=== PATIENT | female | born 1955 | race Caucasian/White ===

== ENCOUNTER 2017-04-21 14:05 | Emergency (ER) | payer MEDICARE, MEDICAID ==
[~2017-04-21] VITALS: Ht 180.3 cm; Wt 122.5 kg
[~2017-04-21 14:05] MED LIST: ABILIFY20 MG OR; AMLO5TAB; ATENOLOL100 MG PO; ATENOLOL25 MG PO; BACTRIM DS 8001 TAB PO; BENZTROPINE MESY1 MG PO; COGENTIN GENERIC1 MG OR; EFFEXOR XR150 MG OR; FLEXERIL10 MG PO; HCTZ/LISINOPRIL1 TA3 PO; LISINOPRIL HCTZ1 TAB PO; MIRTAZAPINE15 M1; MIRTAZAPINE15 M1 PO; NEXIUM40 MG PO; SEPTRA DS 800 M1 TAB PO; VICODIN 5/500 T1 TAB PO; ZESTRIL20 MG PO
[2017-04-21 14:39] LABS: HEMOGLOBIN 13.2 g/dL (12.2-16.2); LYMPH # 3.4 K/mm3 (0.7-4.5); LYMPH % 32.4 % (10-50.0)
[2017-04-21 14:41] LABS: URINE BILIRUBIN - DIPSTICK NEGATIVE (NEG); URINE BLOOD 3+ (NEG)
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
--- OUTSIDE RECORDS SUMMARY | 2017-04-21 14:55 | External Medical Summary Rpt ---
Author Author , MANNY BRYANT Address Unknown Phone [email or web address] Care Team Providers Care Survey Analyst Name Role Phone CHICHI WHYTE, CHICHI Unavailable Unavailable ISABELL [facility], Unavailable Unavailable [facility] SHIMON J, SHIMON J Unavailable Unavailable SHIMON Lewis G, SHIMON J Unavailable Unavailable G SHIMON Lewis G, SHIMON J Unavailable Unavailable G Debbie ROBINS, SHIMON, Unavailable Unavailable J G CHERI BRIONNA, Unavailable Unavailable CHERI BRIONNA CHERI, IRAIDA, Unavailable Unavailable CHERI, [facility]IDA [facility], [facility] Unavailable Unavailable [facility], [facility] CECI LATISHA, CECI Unavailable Unavailable LATISHA CECI LATISHA, CECI Unavailable Unavailable LATISHA [facility] Unavailable Unavailable HOSPITA, [facility] MARIA ELENA CHAUDHRY, Unavailable Unavailable MARIA ELENA CHAUDHRY RHO, JAVI Unavailable Unavailable RHO [facility] Unavailable Unavailable INC, [facility] Unavailable Unavailable HOSPITAL P, [facility] P [facility] Unavailable Unavailable IMAGING ASS, [facility] Unavailable Unavailable HOLDINGS, [facility] Unavailable Unavailable [facility]INGS, [facility], Unavailable Unavailable [facility], Unavailable Unavailable [facility] ADRIANA DWI, ADRIANA DWI Unavailable Unavailable [facility] Unavailable Unavailable SERVICES, [facility] MATIAS NUR, Unavailable Unavailable MATIAS NUR R Henrry, Unavailable Unavailable MITZI Linus Sales, Unavailable Unavailable Linus CHAMBERS, Unavailable Unavailable Linus [facility] Un[facility] [place] [place] [facility] Unavailable Unavailable LAB, [facility]Y [facility], Unavailable Unavailable [id number], Unavailable Unavailable [id number] Unavailable Unavailable INC, [facility] BETHANY SERNA, Unavailable Unavailable BETHANY SERNA MITCHELL E, Unavailable Unavailable RADHA SANTIAGO SPIREK ANI, SPIREK Unavailable Unavailable ANI SPIREK ANI, SPIREK Unavailable Unavailable ANI [facility] Unavailable Unavailable [facility] JULIO CÉSAR FRAIRE, Unavailable Unavailable JULIO CÉSAR FRAIRE MARTINEZ GRE, MARTINEZ Unavailable Unavailable GRE BERKOWITZ MONTRELL, BERKOWITZ MONTRELL Unavailable Unavailable WEHRMAN III BHAKTI, Unavailable Unavailable WEHRMAN III BHAKTI AVI SHIPLEY, AVI SHIPLEY Unavailable Unavailable CHAVO ACUNA, Unavailable Unavailable CHAVO ACUNA Purpose Continuity of Care Document - 10-01-2007 through 2016 Problems Code Diagnosis DOS Provider Status K828 OTHER 10-04-2015 [place] SPECIFIED MEDICAL DISEASES OF IMAGING ASS GALLBLADDER R1011 RIGHT UPPER 10-04-2015 [facility] PAIN INC R197 DIARRHEA 10-04-2015 [place] UNSPECIFIED MEDICAL IMAGING ASS R109 UNSPECIFIED 09-24-2015 [place] ABDOMINAL MEDICAL PAIN IMAGING ASS 7802 SYNCOPE AND 03-24-2015 [facility] P 6271 POSTMENOPAU 06-04-2014 SPIRE[facility] ANI HELDER BLEEDING 7935 NONSPECIFIC 06-04-2014 [facility] ANI ABN FINDING RAD & OTH EXAM ORGAN 4019 UNSPECIFIED 05-26-2014 [facility] ESS[facility] 07454 ESOPHAGEAL 05-26-2014 [facility] REFLUX [facility] 02123 SIMPLE 05-26-2014 [facility] HY[facility] WITHOUT ATYPIA V7283 OTHER 05-26-2014 [facility] [place] [facility] PRE-OPERATI VE EXAMINATION 6259 UNSPEC 03-16-2014 [place] [facility] W/FEMALE GENITAL ORGANS 6268 OTH D/O 03-16-2014 [place] MENSTRUATIO MEDICAL N&OTH ABN IMAGING ASS BLEED FE GNT TRACT 5939 UNSPECIFIED 11-22-2013 [facility] MIC DISORDER OF KIDNEY AND URETER 5909 URINARY 11-22-2013 [facility] INFECTION INC SITE NOT SPECIFIED 13316 DEHYDRATION 04-18-2013 AVI SHIPLEY 24299 DIARRHEA 04-18-2013 AVI SHIPLEY 6820 ACUTE 11-08-2012 [facility] BRONCHITIS [facility] 18461 CHEST PAIN 11-08-2012 JAVI RHO UNSPECIFIED 04500 OTHER CHEST 11-08-2012 [facility] 84070 NAUSEA WITH 11-08-2012 [facility] VOMITING [facility] V8289 SPECIAL 10-18-2012 LAB [facility] SCREENING BRANDI FOR OTHER HOLDINGS SPECIFIED CONDITIONS V0189 CONTACT/EXP 10-17-2012 SHIMON Amor OSURE TO OTHER COMMUNICABL E DISEASES 6100 SOLITARY 05-08-2012 [place] CYST OF MEDICAL BREAST IMAGING ASS 55826 LUMP OR 05-08-2012 [place] MASS IN MEDICAL BREAST IMAGING ASS 23451 UNSPECIFIED 05-08-2012 [facility] ABNORMAL [facility] MAMMOGRAM INC V7612 OTHER 05-08-2012 [place] SCREENING MEDICAL MAMMOGRAM IMAGING ASS 43453 VAGINITIS&V 04-26-2012 MITZI Barriga ULVOVAGINIT H IS DISEASES CLASS ELSW V762 SCREENING 04-26-2012 MITZI Barriga FOR H MALIGNANT NEOPLASM OF THE CERVIX 5533 DIAPHRAGMAT 04-11-2012 [place] GREGORIO W/O MEDICAL MENTION IMAGING ASS OBSTRUCTION /GANGREN 70910 DISPLCMT 01-01-2012 [place] LUMBAR MEDICAL INTERVERT IMAGING ASS DISC W/O MYELOPATHY 10283 DEGEN 01-01-2012 [place] LUMBAR/LUMB MEDICAL OSACRAL IMAGING ASS INTERVERTEB RAL DISC 7242 LUMBAGO 01-01-2012 [facility] INC 2724 OTHER AND 07-02-2011 [facility] UNSPECIFIED [facility] INC HYPERLIPIDE LANI 90903 ABDOMINAL 07-02-2011 [facility], EMERGENCY UNSPECIFIED SERVICES SITE 82666 ABDOMINAL 07-02-2011 [facility] PA[facility] OTHER [facility] SPECIFIED INC SITE 8470 NECK SPRAIN 11-28-2010 [place] AND STRAIN MEDICAL IMAGING ASS 8472 LUMBAR 11-28-2010 [place] SPRAIN AND MEDICAL STRAIN IMAGING ASS E8121 OTH MOTR 11-28-2010 [place] VEH JOSELUIS MEDICAL W/MOTR IMAGING ASS VEH-INJR MV PASSENGER E8495 PLACE OF 11-28-[address] [place] [address] ASS [address] PULMONARY 09-18-2010 [place] CONGESTION MEDICAL AND IMAGING ASS HYPOSTASIS 7804 DIZZINESS 09-18-2010 [facility] GIDDINESS SERVICES 35232 ABDOMINAL 07-12-2010 [place] PAIN RIGHT MEDICAL UPPER IMAGING ASS QUADRANT 2859 UNSPECIFIED 07-04-2010 [facility] 7245 UNSPECIFIED 07-04-2010 [facility] [place] [facility] 44818 CONTUSION 03-22-2010 [facility] BACK EMERGENCY SERVICES E8889 UNSPECIFIED 03-22-2010 [facility] FALL [facility]Y SERVICES 5206 DISTURBANCE 11-23-2009 Pankaj FRAIRE IN TOOTH JULIO CÉSAR C ERUPTION 67327 EXOSTOSIS 11-23-2009 YEE JIMY JAW JULIO CÉSAR C 7244 THORACIC/THALIA 11-20-2008 [facility] MBOSACRAL H NEURITIS/RA ORTHOPAEDIC DICULITIS CTR PSC UNSPEC 3534 LUMBOSACRAL 11-19-2008 [facility] INC 2252 BENIGN 06-17-2008 [facility] CEREBRAL EAST MENINGES 7213 LUMBOSACRAL 06-17-2008 [facility] 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 33431 POSTLAMINEC 06-17-2008 [facility] SYNDROME EAST LUMBAR REGION 8471 THORACIC 03-06-2008 [facility] SPRAIN AND H STRAIN ORTHOPAEDIC CTR PSC 5849 ACUTE 12-31-2007 [place] KIDNEY MEDICAL FAILURE IMAGING UNSPECIFIED ASSOCIATES 586 UNSPECIFIED 12-30-2007 [facility] PROF SERV 56290 DUODENITIS 12-12-2007 SCHULSTAD, WITHOUT BETHANY MENTION OF HEMORRHAGE 5368 DYSPEPSIA&O 12-12-2007 MARTHASTDRE, THER SPEC BETHANY DISORDERS FUNCTION STOMACH 76681 DYSPHAGIA 12-05-2007 PATHOLOGY & UNSPECIFIED CYTOLOGY LAB 5997 HEMATURIA 11-05-2007 [facility] Medications Na ND Rx Da Fi Fi Am Da Di Ph RX Ph St me C No te ll ll ou ys ag ar # ys at rm s nt no ma ic us Or Da si cy ia de te s n re d PE 00 09 09 1 59 1 [...] 20 20 AI 77 08 08 D PR 10 0 PH TC AR HE MG M LL #3 E TA 93 BL 8 ET Procedures Procedure [place] [address] [facility] ABDOMINAL 6 [facility] REAL INC INC TIME W/[place] [address] SAURABH ALONZO ABDOMEN & 6 MEDICAL BRIONNA PELVIS IMAGING W/O ASS CONTRAST MATERIAL XTRNL ECG 96593 [facility] FINLEY & 48 HR 5 [facility] RECORDING INC INC XTRNL ECG 82390 [facility] CADET 5 [facility] S RHYTHM P W/I&R UP TO 48 HRS HYSTEROSC 00584 SPIREK SPIREK OPY BX 4 ANI ANI ENDOMETRI UM&/POLYP C W/WO D&C RADIOLOGI 31751 [facility] C EXAM 4 N N CHEST 2 [facility] HOSPITA HOSPITA FRONTAL&L ATERAL ECG 82198 [facility] ROUTINE 4 N N ECG [facility] W/LEAST HOSPITA HOSPITA 12 LDS TRCG ONLY W/[place] [address] [facility], [facility], SURG 4 [facility] PATHOLOGY GROSS&[place] [address] [facility] ALONZO ABDOMEN & 4 MEDICAL BRIONNA PELVIS IMAGING W/[place] [address] [facility] FIN[facility] ABDOMEN & 4 [facility] PELVIS INC INC W/O CONTRAST MATERIAL ECG 35935 AVI SHIPLEY ROUTINE 3 ECG W/LEAST 12 LDS I&R ONLY RADIOLOGI 80713 [facility] C EXAM 3 N N CHEST 2 [facility] HOSPITA HOSPITA FRONTAL&L ATERAL ACUTE 39361 LAB [facility] LAB CY[facility] HEPATITIS 3 BRANDI BRANDI PANEL HOLDINGS HOLDINGS DIAGNOSTI G0204 [facility] FINLEY C [address] [facility] HOSP MAMMOGRAP INC INC HY INCL CAD WHEN PERF; BILAT US BREAST 20298 [facility] REAL 2 MEDICAL MEDICAL TIME IMAGING IMAGING W/IMAGE ASS ASS DOCUMENTA TION RADEX 54902 [facility] UPPER GI 2 [facility] W/WO INC INC GLUCAGON/ DEL[place] IM[place] [address] [facility] ALONZO TRACT 2 MEDICAL BRIONNA UPPER IMAGING W/WO ASS DELAYED IMAGES W/O KUB MRI 12675 [facility] SPINAL 2 [facility] CANAL INC INC LUMBAR W/O CONTRAST MATERIAL 3D 11157 [facility]AV[facility] FINLEY RENDERING 2 [facility] W/INTERP INC INC & [place] ON 3D 61356 [facility] RENDERING 1 [facility] INC INC W/INTERP& POSTPROC DIFF WORK STATION RADEX ABD 79700 [facility] COMPL 1 [facility] AQT ABD INC INC W/S/E/D [address] [address] [place] [address] [facility] ABDOMEN & 1 [facility] PELVIS INC INC W/[place] [address] [facility] LIPASE 1 [place] [address] [facility] AMYLASE 1 [facility] INC INC COMPREHEN 32321 [facility] SIVE 1 [facility] METABOLIC INC INC PANEL CULTURE 57264 [facility] BACTERIAL 1 [facility] INC INC QUANTTATI VE COLONY COUNT URINE BLOOD 28423 [facility] COUNT 1 [facility] COMPLETE INC INC AUTO&AUTO DIFRNTL WBC URNLS DIP 29079 [facility] FINLEY 1 [facility] STICK/TAB INC [place] [address] [facility] ANGIOGRAP 1 [facility] HY INC INC ABDOMEN W/CONTRAS T/NONCONT RAST COMPREHEN 14125 [facility] SIVE 1 DIAGNOSTI DIAGNOSTI METABOLIC CS CS PANEL 3D 77481 SAURABH CHERI RENDERING 1 MEDICAL BRIONNA IMAGING W/INTERP& ASS POSTPROC DIFF WORK STATION RADEX 07170 [facility] CHERI SPINE 1 MEDICAL BR[facility] LUMBOSACR IMAGING AL [place] [address] [place] [address] SAURABH JOHNSONUTCHER CERVICAL 1 MEDICAL BRIONNA SPINE W/O IMAGING CONTRAST ASS MATERIAL CREATINE 78962 [facility] KINASE MB 0 [facility] FRACTION INC INC ONLY CREATINE 74916 [facility] KINASE 0 [place] [address] [facility] INFUSION 0 [facility] THERAPY/P INC INC ROPHYLAXI S /DX 1ST TO [address] [place] [address] [facility] TROPONIN 0 [facility] QUANTITAT INC INC WAI BASIC 38632 [facility] METABOLIC 0 [facility] PANEL INC INC CALCIUM TOTAL BLOOD 40705 [facility] COUNT 0 [facility] COMPLETE INC INC AUTO&AUTO DIFRNTL WBC ECG 52558 [facility] WRIGHT DWI ROUTINE 0 [facility] W/LEAST P 12 LDS I&R ONLY ECG 32653 [facility] ROUTINE 0 [facility] ECG INC INC W/LEAST 12 LDS TRCG ONLY W/O I&R RADIOLOGI 18716 [facility] C 0 [facility] EXAMINATI INC [place] [address] SAURABH CHERI ABDOMINAL 0 MEDICAL [facility] REAL IMAGING TIME ASS W/IMAGE LIMITED BLOOD 36466 FAMILY SHIMON J COUNT 0 CARE COMPLETE ASSOCIATE AUTO&AUTO S DIFRNTL WBC LIPID 48921 FAMILY SHIMON J 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 COLLECTIO 82354 FAMILY SHIMON J N VENOUS 0 CARE BLOOD [place] [address] [facility]ONE OF THYROID 0 [facility] INC STIMULATI NG HORMONE TSH COMPREHEN 20282 [facility] OF SIVE 0 [facility] METABOLIC PANEL MRI 31854 OPENSIDED OPENSIDED SPINAL 0 MRI OF MRI OF CANAL CINNCINNA CINNCINNA LUMBAR TI TI W/O CONTRAST MATERIAL RADEX 48806 [facility] SPINE 0 [facility]OS[facility] LUMBOSACR INC INC AL MINIMUM 4 VIEWS DEEP D9220 YEE FRAIRE, SEDATION/ 0 JULIO CÉSAR Mcknight GENERAL ANESTHESI A-1ST 30 MINUTES ALVEOLOPL 15688 YEE FRAIRE, ASTY EACH 0 JULIO CÉSAR Mcknight QUADRANT SPECIFY EXCISION 30412 YEE FRAIRE TORUS 0 JULIO CÉSAR Mcknight MANDIBULA RIS LIPID 69599 [facility] PANEL 0 [place] [facility] [place] [facility] COMPREHEN 32394 [facility] SIVE 0 [place] [facility] [place] [facility] METABOLIC PANEL COLLECTIO 51277 FAMILY ROBINS, J N VENOUS 0 CARE G BLOOD ASSOCIATE VENIPUNCT S URE COLLECTIO 72208 FAMILY CARTAGENA, N VENOUS 9 CARE R ANETTE BLOOD ASSOCIATE VENIPUNCT S URE LIPID 63223 [facility] PANEL 9 [place] [facility] [place] [facility] COMPREHEN 73110 [facility] SIVE 9 [place] [facility] [place] [facility] METABOLIC PANEL NDL EMG 1 49584 [facility] XTR W/WO 9 S S RELATED HEALTHCAR HEALTHCAR PARASPINA E INC E INC L AREAS MRI 55781 HUMAA RICHA, SPINAL 8 [facility] CANAL ORTHOPAED LUMBAR IC CTR W/O PSC CONTRAST MATERIAL NDL EMG 1 72197 [facility] [place] XTR W/WO 8 S S RELATED HEALTHCAR HEALTHCAR PARASPINA E INC E INC L AREAS NRV CNDJ 73781 [place] AMPLT&LAT 8 S S ENCY EA HEALTHCAR HEALTHCAR NRV MOTOR E INC E INC W/F-WAVE STD NRV CNDJ 19403 [facility] AMPLITUDE 8 S S & HEALTHCAR HEALTHCAR LATENCY E INC E INC EACH NERVE SENSORY H-REFLEX 52557 [facility] [facility] AMPLT&LAT 8 S S ENCY HEALTHCAR HEALTHCAR GASTRCN/S E INC E INC OLEUS MUSC FLUOR 26923 [facility] NEEDLE/CA [address] [place] [address] [facility] SPINE/PAR ASPINAL DX/THER ADDON DSTRJ 76580 [facility] NULYT [address] [place] [address] [facility] FACET JT NRV LMBR/SAC 1 LVL INJECTION J1040 PAMELA SANTIAGO, Serena LOPEZPRE E E DNISOLONE ACETATE 80 [place] NJX 90487 PAMELA SANTIAGO ANES&/STR 8 RADHA RADHA D W/IMG E E TFRML EDRL LMBR/SAC 1 LVL NJX 72640 PAMELA SANTIAGO ANES&/STR 8 RADHA GARCIA D W/IMG E E TFRML EDRL LMBR/SAC EA LV EPIDUROGR 24747 PAMELA SANTIAGO APY RS&I 8 RADHA GARCIA E E EPIDUROGR 15161 PAMELA SANTIAGO APY RS&I 8 [place] NJX 19736 PAMELA SANTIAGO ANES&/STR 8 RADHA GARCIA D W/IMG E E TFRML EDRL LMBR/SAC EA LV NJX 73551 PAMELA SANTIAGO ANES&/STR 8 RADHA GARCIA D W/IMG E E TFRML EDRL LMBR/SAC 1 LVL INJECTION J1040 PAMELA SANTIAGO, 8 RADHA GARCIA METHYLPRE E E DNISOLONE ACETATE [address] [place] [address] [place] LIUDMILA, HEAD/BRAI 8 MEDICAL MATIAS P N W/[place] [address] [place] LIUDMILA, RETROPERI 8 MEDICAL MATIAS P TONEAL IMAGING REAL TIME ASSOCIATE W/IMAGE S COMPLETE 3D 33756 [place] LIUDMILA, RENDERING 8 MEDICAL MATIAS P W/INTERP IMAGING & ASSOCIATE POSTPROCE S SS SUPERVISI ON DUPLEX 10388 [place] LIUDMILA, SCAN 8 MEDICAL MATIAS P EXTRACRAN IMAGING IAL ART ASSOCIATE COMPL BI S STUDY RADIOLOGI 70508 [place] Roxanna ALONZO 8 MEDICAL IRA[place] EXAMINATI IMAGING ON CHEST ASSOCIATE SINGLE S VIEW FRONTAL EGD 86117 SCHULSTAD SCHULSTAD TRANSORAL 8 , BETHANY , BETHANY BIOPSY SINGLE/[place] [address] PATHOLOGY PATHOLOGY SURG 8 & & PATHOLOGY CYTOLOGY CYTOLOGY LAB LAB GROSS&[place] [address] [facility] ABDOMINAL 8 [facility] REAL INC INC TIME W/IMAGE LIMITED Encounters Encounter Start End Date Code Location Performer Type Date [facility] - 6 6 [facility] OUTPATIEN [facility] - 5 5 [facility] OUTPATIEN [facility] HOSPITAL [facility] - 4 4 N [facility]PATIEN [facility] EMER[facility] 31584 CECI ORNELAS DEPT 4 4 LATISHA LATISHA VISIT HIGH SEVERITY& THREAT [facility] - 4 4 [facility] OUTPATIEN [facility] EMERGENCY 39160 [facility] HIGH/URGE NT SEVERITY [facility] - 3 3 N OUTPATIEN [facility] OFFICE 45777 SHIMON ROBINS OUTPATIEN 3 3 G G T VISIT 25 MINUTES HOSPITAL [facility] - 2 2 [facility] OUTPATIEN [facility] PERIODIC 17246 MITZI MITZI PREVENTIV 2 2 R H R H E MED EST PATIENT 40-64YRS [facility] - 2 2 [facility] OUTPATIEN [facility] HOSPITAL [facility] - 2 2 [facility] OUTPATIEN [facility] OFFICE 63185 [place] BERKOWITZ MONTRELL CONSULTAT 1 1 MEDICAL ION SERV NEW/ESTAB FOUNDATIO PATIENT 60 MIN EMERGENCY 91085 [facility] ORNELAS DEPT 1 1 EMERGENCY LATISHA VISIT SERVICES HIGH SEVERITY& THREAT [facility] EMERGENCY 20490 [facility] 1 1 [facility] VISIT MODERATE SEVERITY HOSPITAL [facility] - 1 1 [facility] OUTPATIEN [facility] - 1 1 [facility] OUTPATIEN [facility] EMERGENCY 29220 [facility] 0 0 [facility] VISIT HIGH/URGE NT SEVERITY HOSPITAL [facility] - 0 0 [facility] OUTPATIEN INC T EMERGENCY 64265 [facility] DEE DEPT 0 0 EMERGENCY III BHAKTI VISIT SERVICES HIGH SEVERITY& [facility] OUTPATIEN INC T OFFICE 11860 FAMILY CARTAGENA OUTPATIEN 0 0 CARE R H T VISIT ASSOCIATE 15 S MINUTES HOSPITAL [facility] - 0 0 [facility] OUTPATIEN INC T EMERGENCY 52266 [facility] MARTINEZ 0 0 EMERGENCY GRE DEPARTMEN SERVICES T VISIT HIGH/URGE NT SEVERITY EMERGENCY 88747 [facility] 0 0 [facility] DEPARTMEN INC T VISIT LOW/MODER SEVERITY OFFICE 21985 YEE FRAIRE, OUTPATISANTA 0 0 JULIO CÉSAR Mcknight T NEW 20 MINUTES OFFICE 06676 NEHAL CHAUDHRY OUTPATIEN [address] [facility] T VISIT ORTHOPAED 25 IC CTR MINUTES [facility] OFFICE 29640 [place] [facility] [address] [facility] T VISIT ORTHOPAED 25 IC CTR MINUTES [facility] OFFICE 54657 [place] [facility] OUTPATIEN 8 8 LT DELMY T VISIT ORTHOPAED 25 IC CTR MINUTES [facility] OFFICE 94268 [place] [facility] OUTPATIEN [address] [facility] T VISIT ORTHOPAED 25 IC CTR MINUTES [facility] OFFICE 16934 [place] [facility] OUTPATIEN [address] [facility] T VISIT ORTHOPAED 25 IC CTR MINUTES [facility] 8 8 [facility] T OFFICE 89779 [place] [facility] OUTPATIEN [address] [facility] T VISIT ORTHOPAED 25 IC CTR MINUTES [facility] OFFICE 16594 [place] [facility] OUTPATIEN [address] [facility] T VISIT ORTHOPAED 25 IC CTR MINUTES [facility] EMERGENCY 94682 [facility] ACUNA, 8 8 [facility] T VISIT PROF SERV HIGH/URGE NT SEVERITY OFFICE 34802 FAMILY MITZI, OUTPATIEN 8 8 CARE R ANETTE T VISIT ASSOCIATE 15 S MINUTES OFFICE 01583 FAMILY FAMILY OUTPATIEN 8 8 CARE CARE T VISIT ASSOCIATE ASSOCIATE 15 S S MINUTES OFFICE 14989 FAMILY FAMILY OUTPATIEN 8 8 CARE CARE T VISIT 5 ASSOCIATE ASSOCIATE MINUTES S S OFFICE 71429 DAPHNE SERNA OUTPATIEN 8 8 , BETHANY SIMS T VISIT 15 MINUTES OFFICE 60297 DAPHNE SERNA CONSULTAT 8 8 , BETHANY SIMS ION NEW/ESTAB PATIENT 60 MIN [facility]AR - 8 8 [facility] OUTPATIEN INC T OFFICE 46265 FAMILY FAMILY OUTPATIEN 8 8 CARE CARE T VISIT ASSOCIATE ASSOCIATE 25 S S MINUTES OFFICE 36714 FAMILY FAMILY OUTPATIEN 8 8 CARE CARE T VISIT ASSOCIATE ASSOCIATE 15 S S MINUTES
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
--- OUTSIDE RECORDS SUMMARY | 2017-04-21 14:56 | External Medical Summary Rpt ---
Demographics Preferred Language Romansh Marital Status Unknown Sabianism Affiliation Unknown Race Unknown Ethnic Group Unknown Author Author , IRENE BRYANT Address Unknown Phone Immunization Unable to retrieve immunization data due to connection failure with Immunization Registry. Please try again later.
--- OUTSIDE RECORDS SUMMARY | 2017-04-21 14:56 | External Medical Summary Rpt ---
Demographics Preferred Language Mohawk Marital Status Unknown Mandaeism Affiliation Unknown Race Unknown Ethnic Group Unknown Author Author , IRENE BRYANT Address Unknown Phone Immunization Unable to retrieve immunization data due to connection failure with Immunization Registry. Please try again later.
--- OUTSIDE RECORDS SUMMARY | 2017-04-21 14:56 | External Medical Summary Rpt ---
Author Author [employer] Address Unknown Phone Unavailable Results CBC W Auto Differential panel in Blood Observa Value Referen Units Interpr Notes Date tion ce etation Range Basophils 0 - 0.2 K/MM3 Normal No Apr 21 informati 2016 2:30 [#/volume on in PM ] in source Blood by data Automated count Basophils 0.1 - 2.0 % Normal No Apr 21 informati 2016 2:30 leukocyte on in PM s in source Blood by data Automated count Eosinophi 0.0 - 0.4 K/mm3 Normal No Apr 21 ls informati 2016 2:30 [#/volume on in PM ] in source Blood by data Automated count Eosinophi 0.1 - % Normal No Apr 21 ls/100 12.0 informati 2016 2:30 leukocyte on in PM s in source Blood by data Automated count Granulocy 1.8 - 7.8 K/mm3 Normal No Apr 21 zehra informati 2016 2:30 [#/volume on in PM ] in source Blood by data Automated count Granulocy 37.0 - % Normal No Apr 21 zehra/100 80.0 informati 2016 2:30 leukocyte on in PM s in source Blood by data Automated count Hematocri 37.0 - % Normal No Apr 21 t [Volume 47.0 informati 2016 2:30 on in PM Fraction] source of Blood data Hemoglobi 12.2 - g/dL Normal No Apr 21 n 16.2 informati 2016 2:30 [Mass/vol on in PM ume] in source Blood data Lymphocyt 0.7 - 4.5 K/mm3 Normal No Apr 21 es informati 2016 2:30 [#/volume on in PM ] in source Unspecifi data ed specimen by Automated count Lymphocyt 10 - 50.0 % Normal No Apr 21 es informati 2016 2:30 [#/volume on in PM ] in source Unspecifi data ed specimen by Automated count Erythrocy 27 - 31.2 pg Normal No Apr 21 te mean informati 2016 2:30 corpuscul on in PM ar source hemoglobi data n [Entitic mass] Erythrocy 31.8 - g/dl Normal No Apr 21 te mean 35.4 informati 2016 2:30 corpuscul on in PM ar source hemoglobi data n concentra tion [Mass/vol ume] by Automated count Erythrocy 82.2 - fl Normal No Apr 21 te mean 97.8 informati 2016 2:30 corpuscul on in PM ar volume source [Entitic data volume] by Automated count Monocytes 0.1 - 1.0 K/mm3 Normal No Apr 21 informati 2016 2:30 [#/volume on in PM ] in source Blood by data Automated count Monocytes 1.7 - 9.3 % Normal No Apr 21 /100 informati 2016 2:30 leukocyte on in PM s in source Blood by data Automated count Platelet 7.4 - fl Low No Apr 21 mean 10.4 informati 2016 2:30 volume on in PM [Entitic source volume] data in Blood by Automated count Platelets 142 - 424 K/mm3 Normal No Apr 21 inform2016 2:30 [#/volume on in PM ] in source Blood data Erythrocy 4.2 - 5.4 M/mm3 Normal No Apr 21 zehra informati 2016 2:30 [#/volume on in PM ] in source Amniotic data fluid Erythrocy 11.5 - % Normal No Apr 21 te 17.5 informati 2016 2:30 distribut on in PM ion width source [Entitic data volume] by Automated count Leukocyte 4.8 - K/MM3 Normal No Apr 21 s 10.8 informati 2016 2:30 [#/volume on in PM ] in source Blood data Urinalysis dipstick W Reflex Microscopic panel in Urine Observa Value Referen Units Interpr Notes Date tion ce etation Range Appeara CLEAR CLEAR No No No Apr 21 nce of informa informa informa 2016 Urine tion in tion in tion in 2:16 PM source source source data data data Bilirub NEGATIV NEG No No No Apr 21 in E informa informa informa 2016 [Presen tion in tion in tion in 2:16 PM ce] in source source source Urine data data data by Test strip Erythro 3+ NEG No Abnorma No Apr 21 cytes informa l informa 2016 [Presen tion in tion in 2:16 PM ce] in source source Urine data data Color YELLOW YELLOW No No No Apr 21 of informa informa informa 2016 Urine tion in tion in tion in 2:16 PM source source source data data data Glucose NEG No No No Apr 21 [Mass/vol informati informati informati 2016 2:16 ume] in on in on in on in PM Urine by source source source Test data data data strip Ketones NEGATIV NEG mg/dL No No Apr 21 E informa informa 2016 [Presen tion in tion in 2:16 PM ce] in source source Urine data data by Automat ed test strip Mucus NEGATIV NEG No No No Apr 21 [Presen E informa informa informa 2016 ce] in tion in tion in tion in 2:16 PM Urine source source source sedimen data data data t by Light microsc opy Nitrite NEGATIV NEG No No No Apr 21 E informa informa informa 2016 [Presen tion in tion in tion in 2:16 PM ce] in source source source Urine data data data by Test strip pH of 5.0 - 8.5 No Normal No Apr 21 Urine informati informati 2016 2:16 on in on in PM source source data data Protein NEG mg/dL No No Apr 21 [Mass/vol informati informati 2016 2:16 ume] in on in on in PM Urine by source source Automated data data test strip Specific 1.005 - No Normal No Apr 21 gravity 1.030 informati informati 2016 2:16 of Urine on in on in PM source source data data Urobili 1.0 NEG E.U./dL No No Apr 21 nogen informa informa 2016 [Presen tion in tion in 2:16 PM ce] in source source Urine data data by Test strip
--- OUTSIDE RECORDS SUMMARY | 2017-04-21 14:56 | External Medical Summary Rpt ---
Author Author [email or web address] Address Unknown Phone Unavailable [...]
[2017-04-21 15:05] LABS: BUN 23 mg/dL (7-18)
[2017-04-21 15:06] LABS: GFR (ESTIMATED) 27 ML/MIN (59-)
--- NOTE | 2017-04-21 15:22 | Emergency Room Report ---
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 N Clinical Suspician of Infection? N Mental Status: 1 - Regular (Normal Baseline) Sepsis Risk:Low Sepsis Risk Have you (or family members/close friends) recently traveled outside the [place]? N If Yes, where/when: Have you had exposure to infectious disease within the past month? TB? Other? Specify: Patient ate at [employer] two days ago. She and her BF both vomited yesterday. She is keeping food and fluids down, but has some sharp, intermittent pain under her right breast for the past two days. No SOB. No fever or diaphoresis. Nonradiating. No blood from above or below. No cough. Has hx renal calculi, reports some frequency but no dysuria or chuck hematuria. ALLERGIES Coded Allergies: No Known Allergies (04/21/17) Home Medications Reported Medications VENLAFAXINE HCL (Effexor XR 150MG) 1 OR DAILY Aripiprazole (Abilify) 1 OR DAILY Esomeprazole Magnesium (Nexium 40MG Cap) 40 MG PO DAILY #30 30 Days LISINOPRIL/HYDROCHLOROTHIAZIDE (Lisinopril-Hctz 20-12.5 MG Tab) 1 TAB PO DAILY #30 Benztropine Mesylate 1 MG PO BID #60 History Medical History General CAD? No Angina: No KS: No Hypertension? Yes Hyperlipidemia? Yes CHF? No DVT? No PE? No COPD? No Asthma? No Anemia? Yes GERD? Yes Gastric ulcers? Yes GI Bleed? Yes Hernia? Yes Thyroid Problems? No Hypothyroidism? No CVA? No Seizures? No Diabetes? No Renal Insuffiency? No End Stage Renal Disease? No UTI? Yes Stones? Yes BPH? No GB Disease: No Nephritic Syndrome? No Asplenia? No Hepatitis? No Sickle Cell Disease? No Arthritis? Yes Migraines? Yes Cataracts? No Glaucoma? No MRSA? No HIV? No TB? Yes Anxiety? Yes Depression? Yes Cancer? No More? No Immunization Hx Ped.Immunizations UTD Yes DT/Tetanus 5-10 YRS Flu NEVER Pneumonia < 1 YR AGO Surgical Hx Previous Surgery?Y TUBAL LIGATION TONSILS D & C Family History Family Hx Diabetes Yes CAD Yes Hypertension Yes Hyperlipidemia No Cancer Yes TB Yes Social History Smoking Hx Smoker: Never Smoker Tobacco: No Type N/A Alcohol Alcohol: No Review of Systems All Other Systems Reviewed and Negative Cardiovascular see HPI Gastrointestinal see HPI Genitourinary see HPI. Physical Exam Vital Signs Vital Signs Date Time Temp Pulse Resp B/P Pulse O2 O2 Flow FiO2 Ox Delivery Rate 04/21 1539 90 14 93/60 93 04/21 1411 97.8 110 18 105/64 98 General Appearance normal appearance, WD/WN, no apparent distress Eye Exam - bilateral eye normal exam, bilateral eye PERRL Neck normal inspection, non-tender, supple, full range of motion Respiratory Status Yes: trachea midline, chest symmetrical, non tender chest. No: respiratory distress, tender on palpation, use of accessory muscles, pain on inspiration, pain on expiration, productive cough, non productive cough. Lung Sounds bilateral: normal breath sounds, lungs clear. Cardiovascular normal exam, regular rate/rhythm, no peripheral edema, no gallop, no JVD, no murmur, no rub, normal peripheral pulses Gastrointestinal normal bowel sounds, normal exam, non tender, soft, no organomegaly, no pulsatile mass, no guarding, no rebound Extremities non-tender, normal range of motion, normal inspection, no calf tenderness, no pedal edema Strength 5 Upper Ext (L), 5 Upper Ext (R), 5 Lower Ext (L), 5 Lower Ext (R) Neurologic alert, normal exam, no motor/sensory deficits, oriented x 3 Glascow Coma Scale Glascow Coma Scale Response Value EYE response: 4 Spontaneously 4 MOTOR response: 6 OBEYS 6 VERBAL response: 5 Oriented & Converses 5 Total 15 Skin intact, normal color, warm/dry Medical Decision Making LABS/Meds/Orders Pt receiving controlled substance in ED? No Results/Orders Laboratory Tests 04/21/17 1430: Sodium 140, Potassium 3.4 L, Chloride 101, Carbon Dioxide 27, BUN 23 H, Creatinine 1.9 H, Estimated Creat Clear 60, Estimated GFR (MDRD) 27 L, Glucose 107 H, Calcium 8.7, Total Bilirubin 0.3, AST 24, ALT 24, Alkaline Phosphatase 114, Creatine Kinase 452 H, CK-MB (CK-2) Rel Index 0.4, CK and CKMB Interp 1.9, Troponin I < 0.02, Total Protein 7.9, Albumin 3.7, Globulin 4.2 H, Albumin/ Globulin Ratio 0.9 L, Amylase 34, Lipase 46 L, WBC 10.5, RBC 4.45, Hgb 13.2, Hct 41.1, MCV 92.3, RDW 13.9, Plt Count 325, MPV 6.8 L, Gran % 60.4, Gran # 6.4 , Lymphocytes % 32.4, Monocytes % 4.9, Eosinophils % 1.8, Basophils % 0.5, Lymphocytes # 3.4, Monocytes # 0.5, Eosinophils # 0.2, Basophils # 0.1, PUBS MCHC 32.2, MCH 29.7 04/21/17 141: Urine Color YELLOW, Urine Appearance CLEAR, Urine pH 5.5, Ur Specific [place] 1.025, Urine Protein NEGATIVE, Urine Ketones NEGATIVE, Urine Blood 3+ H, Urine Nitrate NEGATIVE, Urine Bilirubin NEGATIVE, Urine Urobilinogen 1.0, Ur Leukocyte Esterase NEGATIVE, Urine RBC 10-20, Urine WBC 5-10, Ur Squamous Epith Cells 5-10 , Urine Bacteria 4+, Urine Mucus 1+, Urine Glucose NEGATIVE Current Medication Orders Sig/Candida Start time Last Medication Dose Route Stop Time Status Admin Sodium Chloride 10 ML PRN PRN 04/21 141 AC IV 04/22 141 Orders Procedure Date/time Status DIET-NOTHING BY MOUTH 04/[address] ABD & PELVIS W/O CONTRAST 04/[address] ABD/PELVIS REQ 04/21 1503 Active CULTURE, URINE 04/21 141 Active 12 LEAD EKG-BESSON (INITIAL) 04/21 141 Active ELECTROCARDIOGRAM REQUEST 04/21 1415 Active CHEST(2 VIEWS-NOT PORTABLE) 04/21 141 Active IV SALINE LOCK 04/21 1415 Active URINALYSIS/COMPLETE 04/21 141 Complete LIPASE 04/21 141 Complete CBC WITH AUTO DIFF 04/21 1415 Complete CARDIAC ENZYMES 04/21 1415 Complete CHEM 12 PROFILE 07/29 1415 Complete AMYLASE 04/21 1415 Complete CM/EKG CM/EKG EKG rate, NSR, rhythm, no evid. of ischemic chgs, no ectopy, normal QRS, normal DE, normal EKG (STach 109;) XRAY/CT/US XRAY/CT/US XRAY chest XR interpretation by reviewed by me Xray Results normal/NAD, no infiltrates, normal heart size, normal lung inflation stephy CT abdomen, pelvis CT interpretation by discussed w/radiologist Time results known: 162 CT Results diverticulosis; possible cyst right kidney but no renal calculus; h. hernia; fatty liver Departure Departure Time of Disposition 163 Disposition DC Home or Self Care(routine) Clinical Impression Primary Impression: Atypical chest pain Secondary Impressions: Diverticulosis Qualifiers: Diverticulosis site: diverticulosis of large intestine History of kidney stones Microscopic hematuria Condition STABLE Referrals Suresh NICHOLS,Debbie Do (Family) Patient Instructions DI for Atypical Chest Pain, DI for Diverticulosis Additional Instructions See Dr. Prince for follow up, one week. Tylenol as needed, Rx Zofran for any nausea or vomiting Discharge Counseling Counseled pt/family regarding diagnosis, test results, medications/RX, home care, follow up needs Prescriptions Current Visit Scripts Ondansetron (Zofran 4MG Odt) 4 MG PO Q6HP PRN NAUSEA AND VOMITING #6 ODT ED Critical Care Critical Care No at 1635
[2017-04-21] MEDS ORDERED: ZOFRAN ODT4 MG PO (16:32)
--- NOTE | 2017-04-21 16:36 | RADIOLOGY REPORT PS360 ---
CT ABD PELVIS W/O CONTRAST COMPARISON: CT scan abdomen pelvis 09/24/2015 HISTORY: Abdominal pain TECHNIQUE: Multiple axial scans obtained from hemidiaphragms the pelvic floor and were performed without IV or oral contrast. Sagittal coronal reformats were evaluated as well. FINDINGS: The lower lung rosario are clear. There is a moderate sized hiatal hernia. The liver is normal size and shows diffuse fatty infiltration. Stomach and spleen appear grossly normal. The pancreas appears somewhat atrophic but otherwise normal, gallbladder is grossly normal with no obvious stones. The adrenal glands are normal. The kidneys are normal size, the right kidney sits in the anterior posterior axis a normal variation. There are no calculi and there is no obstructive uropathy of either kidney. Small bowel is normal. The appendix is normal. A moderate amount stool in ascending transverse colon and splenic flexure. There is mild diffuse diverticulosis of the lower descending and sigmoid colon but there is no evidence of diverticulitis. The uterus is normal size and in the midline and slightly retroverted. The urinary bladder is decompressed. There Is no free fluid in the pelvis. IMPRESSION: 1. Diffuse fatty infiltration of the liver 2. Moderate-sized hiatal hernia 3. No renal or ureteral calculi and is no obstructive uropathy 4. Moderate stool right colon moderate diverticulosis of the lower descending and sigmoid colon without diverticulitis
--- NOTE | 2017-04-21 16:37 | RADIOLOGY REPORT PS360 ---
CHEST(2 VIEWS-NOT PORTABLE) INDICATION: Right breast pain and chest wall pain COMPARISON: Portable upright chest 09/18/2010 FINDINGS: The lung rosario are well expanded and appear clear of infiltrate. The cardiomediastinal silhouette and vascularity are normal. The costophrenic angles are clear. The bony thorax is normal. IMPRESSION: Normal chest.
[2017-04-21 16:42] VITALS: BP 109/56
== END 2017-04-21 16:45 | disposition home or self-care (01) ==
LOC: ER 14:05
PROVIDERS: Emergency Medicine
DX: R07.89 Other chest pain (principal); K57.30 Diverticulosis of large intestine without perforation or abscess without bleeding; Z87.442 Personal history of urinary calculi; R31.29 Other microscopic hematuria